=== PATIENT | male | born 1945 | race Caucasian/White ===

== ENCOUNTER 2018-10-14 13:36 | Emergency (ER) | payer MEDICARE ==
[~2018-10-14] VITALS: Ht 172.7 cm; Wt 104.5 kg
[2018-10-14 13:52] VITALS: BP 171/99; Ht 172.7 cm; Wt 104.5 kg
[2018-10-14] MEDS ORDERED: FENOFIBRATE160 MG PO (13:53)
[2018-10-14] MEDS ORDERED: COZAAR50 MG (13:53)
[2018-10-14 15:18] LABS: APPEARANCE CLEAR (CLEAR); COLOR YELLOW (YELLOW)
[2018-10-14 15:19] LABS: BILIRUBIN NEGATIVE (NEGATIVE); GLUCOSE NEGATIVE (NEGATIVE); KETONE NEGATIVE (NEGATIVE); NITRITE NEGATIVE (NEGATIVE); PROTEIN TRACE mg/dL (NEGATIVE); UROBILINOGEN NORMAL (NORMAL)
[2018-10-14 15:20] LABS: AMORPHOUS SEDIMENT <1+ /lpf (NONE SEEN); BACTERIA FEW /hpf (NONE SEEN); EPITHELIAL CELLS OCC /hpf (0-5); RED CELLS - URINE 0-5 /hpf (0-5)
[2018-10-14 15:40] LABS: BASOPHILS 0.1 % (0-2); EOSINOPHILS 0.3 % (0-7); HEMATOCRIT 45.3 % (42.0-54.0); HEMOGLOBIN 15.2 g/dL (13.5-17.5); IMMATURE GRANULOCYTES 0.4 % (0-5); LYMPHOCYTES 8.3 % (15-50); MCH 29.4 pg (26.0-34.0); MCHC 33.6 g/dL (31.0-37.0); MCV 87.6 fL (80.0-100.0); MONOCYTES 7.5 % (2-11); NEUTROPHILS 83.4 % (40-80); PLATELET COUNT 175 10x3/uL (130-400); RBC 5.17 10x6/uL (4.20-6.10); RDW 13.1 % (11.5-14.5); WBC 13.8 10x3/uL (4.8-10.8)
[2018-10-14 15:57] LABS: ALBUMIN 3.3 g/dL (3.4-5.0); ALKALINE PHOSPHATASE 34 U/L (46-116); ALT (SGPT) 23 U/L (10-68); BILIRUBIN - TOTAL 0.46 mg/dL (0.2-1.3); CALC OSMOLALITY 286 mosm/kg (275-300); CALCIUM 8.9 mg/dL (8.5-10.1); CARBON DIOXIDE 26.6 mmol/L (21.0-32.0); CHLORIDE - SERUM 108 mmol/L (98-107); CREATININE - SERUM 0.9 mg/dL (0.6-1.3); GLUCOSE 98 mg/dL (74-106); POTASSIUM - SERUM 4.4 mmol/L (3.5-5.1); PROTEIN - SERUM 6.6 g/dL (6.4-8.2); SODIUM 144 mmol/L (136-145); UREA NITROGEN 12 mg/dL (7-18); eGFR NON AFRICAN AMERICAN 88 mL/min (90-120)
[2018-10-14 16:05] LABS: LIPASE 168 U/L (73-393); PRO BNP 170 pg/mL (0-125); TROPONIN-I < 0.017 ng/mL (0.000-0.060)
[2018-10-14] MEDS ORDERED: FLOMAX0.4 MG PO (18:44)
[2018-10-14] MEDS ORDERED: HYDROCODON-ACE1 EAC7 PO (18:44)
== END 2018-10-14 19:02 | disposition home or self-care (01) ==
LOC: D.ER 13:36
PROVIDERS: Family Medicine
DX: R10.31 Right lower quadrant pain (principal); N20.1 Calculus of ureter; I10 Essential (primary) hypertension

== ENCOUNTER → 2018-11-18 14:43 | Outpatient (CLI) | payer MEDICARE, OTHER ==
[2018-10-14 13:52] VITALS: BMI 35.0
[~2018-11-18 14:43] MED LIST: COZAAR50 MG; FENOFIBRATE160 MG PO; FLOMAX0.4 MG PO; HYDROCODON-ACE1 EAC7 PO
== END | disposition home or self-care (01) ==
LOC: D.LAB 14:43
DX: Z12.5 Encounter for screening for malignant neoplasm of prostate (principal)